=== PATIENT | female | born 1960 | race African-American/Black ===

== ENCOUNTER 2023-12-11 17:14 | Emergency (ER) | payer MEDICAID ==
[~2023-12-11] VITALS: Ht 165.1 cm; Wt 90.0 kg
[2023-12-11 17:28] VITALS: BP 170/101; PULSE 101; RESP 19; TEMP 98.3; O2SAT 99
[2023-12-11 18:39] LABS: BASOPHILS % 0.6 % (0.0-2.0); EOSINOPHILS % 2.4 % (0.0-5.0); HEMATOCRIT. 37.4 % (36.0-48.0); HEMOGLOBIN. 12.8 g/dL (12.0-16.0); LYMPHOCYTES % 32.7 % (20.0-50.0); MEAN CORPUSCULAR HGB CONC 34.2 g/dL (31.0-37.0); MEAN CORPUSCULAR VOLUME 90.6 fL (81.0-99.0); MEAN PLATELET VOLUME 8.2 fl (7.4-10.4); MONOCYTES % 4.5 % (2.0-8.0); NEUTROPHILS % 59.8 % (40.0-76.0); PLATELET 252 x1000/uL (130-400); RED BLOOD CELL COUNT 4.13 mill/uL (4.2-5.4); WHITE BLOOD COUNT 6.4 x1000/uL (4.5-11.0)
[2023-12-11 19:04] LABS: INR 0.9; PROTHROMBIN TIME 10.6 sec (9.6-11.0)
[2023-12-11 19:05] LABS: ALANINE AMINOTRANSFERASE 28 IU/L (10-49); ALBUMIN 4.7 g/dL (3.2-4.8); ASPARTATE AMINOTRANSFERASE 25 IU/L (<34); BILIRUBIN TOTAL 0.4 mg/dL (0.1-1.0); CALCIUM 10.1 mg/dL (8.7-10.4); CARBON DIOXIDE 26 mEq/L (21-32); CHLORIDE 106 mEq/L (98-107); CREATININE 1.5 mg/dL (0.6-1.0); GLUCOSE 148 mg/dL (70-105); POTASSIUM 3.7 mEq/L (3.5-5.1); SODIUM 140 mEq/L (136-145); TROPONIN I HIGH SENSITIVITY 6 ng/L (3.0-34); UREA NITROGEN BLOOD 20 mg/dL (9-23)
[2023-12-11] MEDS ORDERED: IBUP-1523 MT (21:37)
[2023-12-11] MEDS ORDERED: TOPUD MT (21:37)
== END 2023-12-11 23:24 | disposition home or self-care (01) ==
LOC: ER 17:14
DX: R55 Syncope and collapse (principal); M19.09 Primary osteoarthritis, other specified site; F19.90 Other psychoactive substance use, unspecified, uncomplicated; I12.0 Hypertensive chronic kidney disease with stage 5 chronic kidney disease or end stage renal disease; N18.6 End stage renal disease; Z86.73 Personal history of transient ischemic attack (TIA), and cerebral infarction without residual deficits
CPT/HCPCS: 36415; 71045; 80053; 84484; 85025; 93005; 99285